=== PATIENT | male | born 2000 | race Caucasian/White ===

== ENCOUNTER 2025-03-04 21:42 | Emergency (ER) | payer OTHER ==
[2025-03-04] MEDS: Tetracaine HCl/PF 0.5% 4 ML Bottle EYERT ONE (22:35)
== END 2025-03-04 22:48 | disposition home or self-care (01) ==
LOC: LL.ED 21:42
DX: S05.01XA Injury of conjunctiva and corneal abrasion without foreign body, right eye, initial encounter (principal); Z88.0 Allergy status to penicillin; Z86.59 Personal history of other mental and behavioral disorders; Z77.098 Contact with and (suspected) exposure to other hazardous, chiefly nonmedicinal, chemicals; Y99.0 Civilian activity done for income or pay; X58.XXXA Exposure to other specified factors, initial encounter
CPT/HCPCS: 99283; J3490